=== PATIENT | female | born 1955 | race Caucasian/White ===

== ENCOUNTER 2017-03-09 05:45 | Day surgery (SDC) | payer MEDICARE, MEDICAID ==
[~2017-03-09] VITALS: Ht 157.5 cm; Wt 71.7 kg
[2017-03-09] MEDS: LACTATED RINGERS 1,000 ML IV SCH ×2 (08:30→09:11)
[2017-03-09] MEDS ORDERED: ASPI-1035 PO (08:49)
[2017-03-09] MEDS ORDERED: INSU300I SQ ×2 (08:49→08:59)
[2017-03-09] MEDS ORDERED: SITA1TAB4 PO (08:49)
[2017-03-09] MEDS ORDERED: IBUP-2029 PO (08:59)
[2017-03-09] MEDS ORDERED: AMLO10TA80 PO (08:59)
[2017-03-09] MEDS ORDERED: AZOPT OP (08:59)
[2017-03-09] MEDS ORDERED: ATOR20TA65 PO (08:59)
[2017-03-09] MEDS ORDERED: CANA100T PO (08:59)
[2017-03-09] MEDS ORDERED: GENTAMICIN SULF 40MG/ML 2ML VIAL ONE (09:05)
[2017-03-09] MEDS ORDERED: EPINEPHRINE 1:1000 1 MG/ML AMP ONE (09:05)
[2017-03-09] MEDS ORDERED: BUPIVACAINE/EPINEPH/PF 0.25%/0.0005 10ML ONE ×2 (09:06→11:58)
[2017-03-09] MEDS ORDERED: SKIN ADHESIVE 0.7 GM EA TOP ONE (10:33)
[2017-03-09] MEDS ORDERED: MIDAZOLAM HCL 2 MG/2 ML VIAL ONE (10:37)
[2017-03-09] MEDS ORDERED: CEFAZOLIN SODIUM 1000MG/VIAL ONE (10:37)
[2017-03-09] MEDS ORDERED: LIDOCAINE HCL 1% 20ML VIAL (Pyxis) INJ ONE (10:37)
[2017-03-09] MEDS ORDERED: FENTANYL CITRATE/PF 50MCG/ML 2ML VIAL ONE (10:37)
[2017-03-09] MEDS ORDERED: PROPOFOL 200MG/20ML VIAL IV ONE (10:37)
[2017-03-09] MEDS ORDERED: ROCURONIUM BROMIDE 10MG/ML VIAL 5ML IV ONE (10:37)
[2017-03-09] MEDS ORDERED: SODIUM CHLORIDE 0.9% 1,000 ML IV SCH (11:33)
[2017-03-09] MEDS ORDERED: HYDROMORPHONE HCL/PF 2MG/ML CPJ IV PRN (11:45)
[2017-03-09] MEDS ORDERED: ONDANSETRON HCL 4MG/2ML VIAL IV PRN ×2 (11:45→13:45)
[2017-03-09] MEDS ORDERED: MORPHINE SULFATE/PF 1MG/ML 10ML AMP ONE (13:15)
[2017-03-09] MEDS ORDERED: ONDANSETRON HCL 4MG/2ML VIAL ONE (13:21)
[2017-03-09] MEDS ORDERED: NEOSTIGMINE METHYLSULFATE 1MG/ML 10 ML VIAL ONE (13:24)
[2017-03-09] MEDS ORDERED: GLYCOPYRROLATE 0.2 MG/ML 2ML VIAL ONE (13:24)
[2017-03-09] MEDS ORDERED: HYDROCODONE/ACETAMINOPHEN 5/325MG TABLET PO PRN ×2 (13:45)
== END 2017-03-09 17:45 | disposition home or self-care (01) ==
LOC: OR 05:45
PROVIDERS: ATTEND Orthopaedic Surgery
DX: M75.101 Unspecified rotator cuff tear or rupture of right shoulder, not specified as traumatic (principal); S43.431A Superior glenoid labrum lesion of right shoulder, initial encounter; M75.41 Impingement syndrome of right shoulder; M19.011 Primary osteoarthritis, right shoulder; I10 Essential (primary) hypertension; E11.9 Type 2 diabetes mellitus without complications; M94.211 Chondromalacia, right shoulder; E78.5 Hyperlipidemia, unspecified; M65.811 Other synovitis and tenosynovitis, right shoulder; X58.XXXA Exposure to other specified factors, initial encounter; Y93.89 Activity, other specified; Y92.89 Other specified places as the place of occurrence of the external cause; Y99.8 Other external cause status
CPT/HCPCS: 29807; 29822; 29824; 29826; 82962; 88304; 88311; 97166; C1713; J0171; J0690; J1580; J2250; J2405; J2710; J3010; J3490; J7120; A4565; J2274; J2704